=== PATIENT | male | born 1960 | race Caucasian/White ===

== ENCOUNTER → 2021-09-01 | Outpatient (CLI) | payer BC ==
--- NOTE | 2021-09-01 15:46 | CTL ---
EXAMINATION TYPE: CT Low Dose Lung DATE OF EXAM ORDERED: 09/01/2021 HISTORY: Long-term tobacco use. Lung cancer screening CT DLP: 108.[address] CTDI: 2.6 mGy Automated exposure control for dose reduction was used. SCREENING VISIT: Baseline COMPARISON: None TECHNIQUE: Low dose computed tomography scan was performed through the chest at 1 mm thick sections a nd reconstructed images in multiple planes at 1 mm and [address] DIAGNOSTIC QUALITY: Satisfactory FINDINGS: LUNG NODULES: None. LUNGS: COPD: Severity: Mild Fibrosis: Severity: None Lymph nodes: No greater than 1 cm mediastinal Other findings: None RIGHT PLEURAL SPACE: Effusion: None Calcification: None Thickening: None Pneumothorax: None LEFT PLEURAL SPACE: Effusion: None Calcification: None Thickening: None Pneumothorax: None HEART: Heart Size: Normal Coronary Calcification: Small amount localized to LAD axial image 37 series 5 Pericardial Effusion: None OTHER FINDINGS: Upper abdomen: None Bony thorax: Focal moderate to severe anterior spurring in the mid to lower thoracic spine Supraclavicular region: None Other: None IMPRESSION: Mild emphysematous change without suspicious nodules. CT LUNG RAD AND CT CHEST RECOMMENDATION: Lung-Rad 1 Negative: Continue annual screening with LDCT in 12 months. S Modifier (other clinically significant findings): None
[2021-09-01 15:53] LABS: Appearance,Urine Clear (Clear); Bilirubin,Urine Negative (Negative); Blood,Urine Negative (Negative); Color,Urine Yellow; Glucose,Urine (UA) Negative (Negative); Ketones,Urine Negative (Negative); Leukocyte Esterase,Urine Negative (Negative); Nitrite,Urine Negative (Negative); Protein,Urine Negative (Negative); Specific Gravity,Urine 1.023 (1.001-1.035); Urobilinogen,Urine <2.0 mg/dL (<2.0)
--- NOTE | 2021-09-01 16:03 | US ---
EXAMINATION TYPE: US abdomen complete DATE OF EXAM: 09/01/2021 COMPARISON: NONE CLINICAL HISTORY: 61-year-old male F10.10 ETOH ABUSE. TECHNIQUE: Multiple sonographic images of the abdomen are obtained. FINDINGS: EXAM MEASUREMENTS: Liver Length: 13.6 cm Gallbladder Wall: 0.2 cm CBD: 0.3 cm Spleen: 8.4 cm Right Kidney: 10.9 x 4.4 x 4.4 cm Left Kidney: 11.3 x 5.0 x 5.0 cm Pancreas: Most of the pancreas is visualized and shows no gross abnormality. Liver: Relatively homogeneous appearance. No focal lesion. Gallbladder: non-mobile echogenic focus along the posterior wall measures 0.2cm, likely polyp. No hy dropic change, shadowing calculus, wall thickening, or surrounding fluid. Evidence for sonographic Durand's sign: no CBD: wnl Spleen: wnl Right Kidney: no evidence of hydronephrosis Left Kidney: no evidence of hydronephrosis Upper IVC: wnl Abd Aorta: wnl IMPRESSION: 1. No gallstones or biliary ductal dilatation. 2. There is a 2 mm nonmobile echogenic focus along the posterior wall of the gallbladder suggestive o f a gallbladder wall polyp. Reassess in 6 months with a gallbladder ultrasound.
[2021-09-01 23:13] LABS: Luteinizing Hormone 9.5 mIU/mL
[2021-09-01 23:22] LABS: % Iron Saturation 44.33 (15.00-50.00); ALT 17 U/L (10-49); AST 23 U/L (14-35); African American GFR (CKD) 106.1 (60.0-200.0); Albumin 4.5 g/dL (3.8-4.9); Albumin/Globulin Ratio 1.96 (1.60-3.17); Alkaline Phosphatase 54 U/L (41-126); BUN/Creat Ratio 17.94 Ratio (12.00-20.00); Calcium 9.1 mg/dL (8.7-10.3); Carbon Dioxide 23.7 mmol/L (20.0-27.5); Chloride 103 mmol/L (96-109); Globulin 2.3 g/dL (1.6-3.3); Glucose 84 mg/dL (70-110); Iron 126 ug/dL (65-175); Non-African American GFR(CKD) 91.6 (60.0-200.0); Potassium 4.5 mmol/L (3.5-5.5); Sodium 139 mmol/L (135-145); Total Iron Binding Capacity 284 ug/dL (228-460); Total Protein 6.8 g/dL (6.2-8.2)
[2021-09-02 01:19] LABS: Gliadin AB IgA, Deaminated NEGATIVE (NEGATIVE); Gliadin AB IgA, Unit <0.2 U/mL; Gliadin AB IgG, Deaminated NEGATIVE (NEGATIVE)
== END | disposition home or self-care (01) ==
LOC: RADUSWWP 13:46
PROVIDERS: ATTEND Internal Medicine Hematology & Oncology
DX: Z12.2 Encounter for screening for malignant neoplasm of respiratory organs (principal); J43.9 Emphysema, unspecified; F10.10 Alcohol abuse, uncomplicated; R53.83 Other fatigue; R63.4 Abnormal weight loss; Z87.891 Personal history of nicotine dependence
CPT/HCPCS: 36415; 71271; 76700; 80053; 81003; 82533; 82607; 82728; 83002; 83516; 83540; 83550; 84153; 84154; 84443

== ENCOUNTER → 2021-11-27 | Outpatient (CLI) | payer BC ==
--- NOTE | 2021-12-01 14:42 | CT ---
EXAMINATION TYPE: CT sinus wo con DATE OF EXAM: 11/27/2021 COMPARISON: NONE HISTORY: chronic sinus congestion CT DLP: 442.3 mGycm. Automated Exposure Control for Dose Reduction was Utilized. TECHNIQUE: CT scan of the sinuses is performed without contrast, axial images are obtained, coronal r eformatted images are also reviewed. FINDINGS: Mild to moderate mucosal thickening involving the bilateral maxillary sinuses right greater than left with dependent fluid. Moderate to severe mucosal thickening with opacification throughout the ethmoid sinuses bilaterally greatest anteriorly. Ihya-ih-bzseosix mucosal thickening inferior po sterior maxillary sinuses left greater than right. Sphenoid sinuses are clear The ostiomeatal complex is occluded bilaterally on the coronal images. Nasal septum is slightly deviated to right of midline . Visualized portion of mastoid air cells show no abnormal opacification. The globes are intact bilate rally. IMPRESSION: Acute on chronic paranasal sinus disease greatest in the maxillary and ethmoid sinuses as detailed above. Occluded bilateral ostiomeatal complexes noted.
== END | disposition home or self-care (01) ==
LOC: RADCTMAIN 13:55
PROVIDERS: ATTEND Otolaryngology
DX: J34.89 Other specified disorders of nose and nasal sinuses (principal); J34.2 Deviated nasal septum
CPT/HCPCS: 70486